=== PATIENT | female | born 1940 | race Caucasian/White ===

== ENCOUNTER 2017-10-27 13:56 | Inpatient (IN) | payer OTHER ==
[~2017-10-27] VITALS: Ht 170.2 cm; Wt 88.5 kg
[2017-10-27] MEDS ORDERED: SODIUM CHLORIDE 0.9% 1,000 ML IVB ONE (14:10)
[2017-10-27 15:04] LABS: BUN/Creatinine Ratio 7.3; Bilirubin, Total 1.2 mg/dL (0.2-1.0); Calcium 9.4 mg/dL (8.5-10.1); Magnesium 1.4 mg/dL (1.6-2.6); Potassium 3.5 mmol/L (3.5-5.1)
[2017-10-27 15:06] LABS: INR 1.05 (0.9-1.15); Partial Thromboplastin Time 23.7 sec (23.78-33.04); Prothrombin Time 11.2 sec (9.27-12.13)
[2017-10-27 15:23] LABS: Basophils # (auto) 0 uL; Basophils % (auto) 0.5 % (0.0-2.0); Hemoglobin 16.8 g/dL (12.2-16.2); Lymphocytes # (auto) 0.6 uL; Platelet Count (auto) 238 10^3/uL (140-450)
[2017-10-27 15:29] LABS: Eosinophils # (auto) 0 uL; Eosinophils % (auto) 0.1 % (0.0-7.0); Hematocrit 47.7 % (36.0-46.0); Mean Corpuscular Hemoglobin 31.1 pg (28.0-32.0); Mean Corpuscular Hgb Conc. 35.2 g/dL (32.0-36.0); Mean Corpuscular Volume 88.2 fL (80.0-100.0); Monocytes # (auto) 0.6 uL; Monocytes % (auto) 6.5 % (0.0-12.0); Neutrophils # (auto) 7.7 uL; Neutrophils % (auto) 85.9 % (37.0-80.0); Nucleated Red Blood Cells % 0.1 %; Red Blood Cells 5.41 10^6/uL (4.0-5.20); Red Cell Distribution Width 13.7 % (11.8-14.3)
[2017-10-27 17:00] LABS: Urine Bacteria NONE SEEN /hpf (None Seen); Urine Blood Negative /uL (Negative); Urine Mucus FEW (None Seen); Urine WBC 4 /hpf (0 - 5)
[2017-10-27] MEDS ORDERED: ASPirin-EC 81 mg tab PO ONE (17:00)
[2017-10-27 17:07] LABS: Alcohol, Urine < 3.0 mg/dL (0-5); Amphetamine Screen, Urine NEGATIVE (NEGATIVE); Barbiturate Scree,Urine NEGATIVE (NEGATIVE); Benzodiazephine Screen, Urine NEGATIVE (NEGATIVE); Cannabinoid Screen, Urine NEGATIVE (NEGATIVE); Cocaine Screen, Urine NEGATIVE (NEGATIVE); Opiate Scree,Urine NEGATIVE (NEGATIVE); Phencyclidine Screen, Urine NEGATIVE (NEGATIVE)
[2017-10-27] MEDS: MAGNESIUM SULFATE 1GM/100ML 100 ML IV SCH ×2 (19:21→22:00)
[2017-10-27] MEDS ORDERED: cloNIDine HCL 0.1 MG TAB ONE (19:49)
[2017-10-27] MEDS ORDERED: cloNIDine HCL 0.1 MG TAB PO ONE (21:45)
[2017-10-27] MEDS ORDERED: MAGNESIUM SULFATE 1GM/100ML 100 ML IV ONE (22:00)
[2017-10-27] MEDS ORDERED: ONDANSETRON HCL 4 MG/2 ML VIAL IV PRN (23:15)
[2017-10-27] MEDS ORDERED: LABETALOL HCL 5 MG/ML ML 20ML VIAL IV PRN (23:15)
[2017-10-27] MEDS ORDERED: LORazepam 2MG/ML-1ML VIAL IV PRN (23:15)
[2017-10-27] MEDS ORDERED: MORPHINE SULFATE 8mg/ml INJ SDV IV PRN (23:15)
[2017-10-27] MEDS ORDERED: NITROGLYCERIN 0.4 MG SL TAB SL PRN (23:15)
[2017-10-27] MEDS: SODIUM CHLORIDE 0.9% 1,000 ML IV SCH (23:41)
[2017-10-28 00:30] VITALS: BP 149/47
[2017-10-28 05:00] VITALS: BP 158/77
[2017-10-28] MEDS ORDERED: SPIR25TA88 (07:50)
[2017-10-28 07:59] LABS: Basophils # (auto) 0.1 uL; Basophils % (auto) 0.6 % (0.0-2.0); Eosinophils # (auto) 0 uL; Eosinophils % (auto) 0.2 % (0.0-7.0); Hematocrit 43.6 % (36.0-46.0); Hemoglobin 15.3 g/dL (12.2-16.2); Lymphocytes # (auto) 1.2 uL; Lymphocytes % (auto) 13.6 % (10.0-50.0); Mean Corpuscular Hgb Conc. 35.1 g/dL (32.0-36.0); Mean Corpuscular Volume 88.2 fL (80.0-100.0); Monocytes # (auto) 1.2 uL; Monocytes % (auto) 13.5 % (0.0-12.0); Neutrophils # (auto) 6.3 uL; Neutrophils % (auto) 72.1 % (37.0-80.0); Nucleated Red Blood Cells % 0.1 %; Platelet Count (auto) 187 10^3/uL (140-450); Red Blood Cells 4.94 10^6/uL (4.0-5.20); Red Cell Distribution Width 13.6 % (11.8-14.3); White Blood Cell 8.7 10^3/uL (4.4-10.8)
[2017-10-28 08:08] LABS: BUN/Creatinine Ratio 9.2; Calcium 8.6 mg/dL (8.5-10.1)
[2017-10-28 08:22] LABS: Cholesterol 175 mg/dL (< 200); HDL Cholesterol 59 mg/dL (40-59); LDL Cholesterol 107 mg/dL (< 100); Triglycerides 94 mg/dL (< 150)
[2017-10-28 08:30] LABS: Potassium 2.7 mmol/L (3.5-5.1)
[2017-10-28] MEDS ORDERED: POTASSIUM CHL 20 Meq TABLET PO ONE ×2 (08:45→09:15)
[2017-10-28 09:39] VITALS: BP 146/95
[2017-10-28] MEDS ORDERED: SPIR25TA88 PO (09:45)
[2017-10-28] MEDS ORDERED: CHOL20007 PO (09:54)
[2017-10-28] MEDS ORDERED: HYDR-4798 PO (09:54)
[2017-10-28] MEDS ORDERED: PRA1C PO (09:54)
[2017-10-28] MEDS ORDERED: LAMO25TA2 PO (09:54)
[2017-10-28] MEDS ORDERED: METO25TA5 PO (09:54)
[2017-10-28] MEDS ORDERED: ALPR0.5T GT (09:54)
[2017-10-28] MEDS ORDERED: ENOXAPARIN SOD 30 MG/0.3 ML SYRINGE SC SCH (10:00)
[2017-10-28] MEDS ORDERED: ENOXAPARIN SOD 40 MG/0.4 ML SYRINGE SC SCH (10:00)
[2017-10-28] MEDS: ENOXAPARIN SOD 40 MG/0.4 ML SYRINGE SC SCH (10:53)
[2017-10-28] MEDS ORDERED: SPIRONOLACTONE 25 MG TAB PO ONE (12:00)
[2017-10-28] MEDS ORDERED: ASPirin 81 mg TAB PO ONE (12:00)
[2017-10-28] MEDS ORDERED: lamoTRIgine 25 MG TAB PO ONE (12:00)
[2017-10-28] MEDS ORDERED: cefTRIAXone 1GM/10ml IVPUSH 10 ML IV ONE (12:15)
[2017-10-28] MEDS: SODIUM CHLORIDE 0.9% 1,000 ML IV SCH (12:35)
[2017-10-28 13:00] VITALS: BP 145/81
[2017-10-28 17:30] VITALS: BP 144/62
[2017-10-28 22:00] VITALS: BP 120/93
[2017-10-28] MEDS: METOPROLOL TARTRATE 25 MG TAB PO SCH ×2 (22:00→23:23)
[2017-10-28] MEDS: ATORVASTATIN 20 MG TAB PO SCH ×2 (22:30→23:23)
[2017-10-29] MEDS: SODIUM CHLORIDE 0.9% 1,000 ML IV SCH ×2 (01:55→15:15)
[2017-10-29 05:00] VITALS: BP 136/66
[2017-10-29 06:06] LABS: Basophils # (auto) 0.1 uL; Basophils % (auto) 0.9 % (0.0-2.0); Eosinophils # (auto) 0.1 uL; Eosinophils % (auto) 1.6 % (0.0-7.0); Hematocrit 40.9 % (36.0-46.0); Hemoglobin 13.8 g/dL (12.2-16.2); Lymphocytes # (auto) 1.6 uL; Lymphocytes % (auto) 24.1 % (10.0-50.0); Mean Corpuscular Hemoglobin 30.8 pg (28.0-32.0); Mean Corpuscular Hgb Conc. 33.8 g/dL (32.0-36.0); Mean Corpuscular Volume 91.3 fL (80.0-100.0); Monocytes # (auto) 0.8 uL; Monocytes % (auto) 11.5 % (0.0-12.0); Neutrophils # (auto) 4.1 uL; Neutrophils % (auto) 61.9 % (37.0-80.0); Nucleated Red Blood Cells % 0.1 %; Platelet Count (auto) 191 10^3/uL (140-450); Red Blood Cells 4.48 10^6/uL (4.0-5.20); Red Cell Distribution Width 14.1 % (11.8-14.3); White Blood Cell 6.6 10^3/uL (4.4-10.8)
[2017-10-29 06:13] LABS: Calcium 8.5 mg/dL (8.5-10.1); Chloride 105 mmol/L (98-107); Potassium 3.9 mmol/L (3.5-5.1); Sodium 138 mmol/L (136-145)
[2017-10-29 06:17] LABS: Alanine Aminotransferase 10 U/L (13-56); Albumin 2.8 g/dL (3.4-5.0); Anion Gap 11 (5-15); Aspartate Aminotransferase 13 U/L (15-37); BUN/Creatinine Ratio 13.1; Blood Urea Nitrogen 13 mg/dL (7-18); Carbon Dioxide 22 mmol/L (21-32); GFR African American 70 mL/min; GFR Non-African American 58 mL/min; Glucose 85 mg/dL (74-106)
[2017-10-29 06:20] LABS: Alkaline Phosphatase 65 U/L (45-117); Bilirubin, Total 1.3 mg/dL (0.2-1.0); Total Protein 6.3 g/dL (6.4-8.2)
[2017-10-29] MEDS ORDERED: cefTRIAXone 1GM/10ml IVPUSH 10 ML IV SCH (09:00)
[2017-10-29] MEDS: ENOXAPARIN SOD 40 MG/0.4 ML SYRINGE SC SCH (09:56)
[2017-10-29] MEDS ORDERED: lamoTRIgine 25 MG TAB PO SCH (10:00)
[2017-10-29] MEDS ORDERED: ASPirin 81 mg TAB PO SCH (10:00)
[2017-10-29] MEDS: METOPROLOL TARTRATE 25 MG TAB PO SCH (10:00)
[2017-10-29] MEDS ORDERED: SPIRONOLACTONE 25 MG TAB PO SCH (10:00)
[2017-10-29 14:15] LABS: Folate (Folic Acid) 7.01 ng/mL (5.38-24)
== END 2017-10-29 21:35 | disposition short-term general hospital (02) | DRG 64 ==
LOC: EDBD 13:56 → ER 14:04 → TELE 14:05 → TELE-WESTW 10-28 00:25
PROVIDERS: ADMIT Nurse Practitioner Family; ATTEND Family Medicine
DX: I63.9 Cerebral infarction, unspecified (principal); I21.4 Non-ST elevation (NSTEMI) myocardial infarction; G93.41 Metabolic encephalopathy; N39.0 Urinary tract infection, site not specified; G81.94 Hemiplegia, unspecified affecting left nondominant side; R74.8 Abnormal levels of other serum enzymes; E83.42 Hypomagnesemia; I10 Essential (primary) hypertension; I25.10 Atherosclerotic heart disease of native coronary artery without angina pectoris; M12.9 Arthropathy, unspecified; R47.02 Dysphasia; R47.1 Dysarthria and anarthria; F41.9 Anxiety disorder, unspecified; M10.9 Gout, unspecified; Z96.653 Presence of artificial knee joint, bilateral; E78.5 Hyperlipidemia, unspecified; E66.01 Morbid (severe) obesity due to excess calories; E78.00 Pure hypercholesterolemia, unspecified; E87.6 Hypokalemia; Z87.891 Personal history of nicotine dependence; Z79.82 Long term (current) use of aspirin; Z80.1 Family history of malignant neoplasm of trachea, bronchus and lung; Z98.61 Coronary angioplasty status; Z88.2 Allergy status to sulfonamides; Z79.899 Other long term (current) drug therapy; Z88.8 Allergy status to other drugs, medicaments and biological substances; Z68.30 Body mass index [BMI] 30.0-30.9, adult
CPT/HCPCS: 36415; 51702; 70450; 70551; 71045; 80048; 80053; 80061; 80307; 80320; 81001; 82607; 82746; 82962; 83605; 83735; 84443; 84484; 85025; 85610; 85730; 87040; 87086; 87088; 87186; 92610; 93005; 93306; 95819; 96361; 96365; 96375; 99291

== ENCOUNTER → 2018-07-17 | Outpatient (CLI) | payer OTHER ==
[~2018-07-17] MED LIST: ALPR0.5T GT; CHOL20007 PO; HYDR-4798 PO; LAMO25TA2 PO; METO25TA5 PO; PRA1C PO; SPIR25TA88 PO
[2018-07-17 16:02] LABS: Amphetamine Screen, Urine NEGATIVE (NEGATIVE); Barbiturate Scree,Urine NEGATIVE (NEGATIVE); Benzodiazephine Screen, Urine POSITIVE (NEGATIVE); Cannabinoid Screen, Urine NEGATIVE (NEGATIVE); Cocaine Screen, Urine NEGATIVE (NEGATIVE); Opiate Scree,Urine POSITIVE (NEGATIVE); Phencyclidine Screen, Urine NEGATIVE (NEGATIVE)
== END | disposition home or self-care (01) ==
LOC: LAB 14:58
PROVIDERS: ATTEND Psychiatry & Neurology Neurology
DX: R52 Pain, unspecified (principal)
CPT/HCPCS: 80307

== ENCOUNTER 2018-11-04 17:49 | Emergency (ER) | payer OTHER ==
[~2018-11-04] VITALS: Ht 170.2 cm; Wt 81.6 kg
[2018-11-04] MEDS ORDERED: MORPHINE SULFATE 4 MG/ML SYR/VIAL IV ONE ×3 (19:45→23:45)
[2018-11-04] MEDS ORDERED: ONDANSETRON HCL 4 MG/2 ML VIAL IV ONE ×3 (19:45→23:45)
[2018-11-05 01:27] VITALS: BP 116/65
[2018-11-05] MEDS ORDERED: FUROSEMIDE 20 MG/2 ML VIAL IV ONE (04:15)
== END 2018-11-05 03:16 | disposition home or self-care (01) ==
LOC: EDBD 17:49 → EDUNIT# 17:49 → ER 17:52
DX: S42.212A Unspecified displaced fracture of surgical neck of left humerus, initial encounter for closed fracture (principal); S05.12XA Contusion of eyeball and orbital tissues, left eye, initial encounter; R51 Headache; F41.9 Anxiety disorder, unspecified; I10 Essential (primary) hypertension; Z86.73 Personal history of transient ischemic attack (TIA), and cerebral infarction without residual deficits; Z98.61 Coronary angioplasty status; Z79.891 Long term (current) use of opiate analgesic; Z79.899 Other long term (current) drug therapy; Z88.2 Allergy status to sulfonamides; W01.0XXA Fall on same level from slipping, tripping and stumbling without subsequent striking against object, initial encounter; Y93.89 Activity, other specified; Y92.89 Other specified places as the place of occurrence of the external cause; Y99.8 Other external cause status
CPT/HCPCS: 29105; 70450; 70486; 73030; 73200; 96374; 96375; 96376; 99284; J2270; J2405; 29505

== ENCOUNTER 2018-11-11 17:58 | Inpatient (IN) | payer OTHER ==
[~2018-11-11] VITALS: Ht 175.3 cm; Wt 94.7 kg
[2018-11-11 18:36] LABS: Basophils # (auto) 0 uL; Basophils % (auto) 0.6 % (0.0-2.0); Eosinophils # (auto) 0 uL; Eosinophils % (auto) 0.6 % (0.0-7.0); Hematocrit 39.3 % (36.0-46.0); Hemoglobin 13.3 g/dL (12.2-16.2); Lymphocytes # (auto) 0.7 uL; Lymphocytes % (auto) 9.9 % (10.0-50.0); Mean Corpuscular Hemoglobin 30.9 pg (28.0-32.0); Mean Corpuscular Hgb Conc. 33.8 g/dL (32.0-36.0); Mean Corpuscular Volume 91.5 fL (80.0-100.0); Monocytes # (auto) 0.8 uL; Monocytes % (auto) 12.4 % (0.0-12.0); Neutrophils # (auto) 5.1 uL; Neutrophils % (auto) 76.5 % (37.0-80.0); Nucleated Red Blood Cells % 0.1 %; Platelet Count (auto) 249 10^3/uL (140-450); Red Blood Cells 4.29 10^6/uL (4.0-5.20); Red Cell Distribution Width 13.9 % (11.8-14.3); White Blood Cell 6.7 10^3/uL (4.4-10.8)
[2018-11-11 18:56] LABS: Albumin 2.9 g/dL (3.4-5.0); BUN/Creatinine Ratio 13.7; Calcium 8.9 mg/dL (8.5-10.1)
[2018-11-11 19:00] LABS: Bilirubin, Total 1.6 mg/dL (0.2-1.0); Total Protein 6.9 g/dL (6.4-8.2)
[2018-11-11 19:38] LABS: Potassium 2.8 mmol/L (3.5-5.1)
[2018-11-11] MEDS ORDERED: POTASSIUM CHL 20MEQ/100ML 100 ML IV ONE (20:00)
[2018-11-11 22:03] LABS: Urine Bacteria NONE SEEN /hpf (None Seen); Urine Blood Negative /uL (Negative); Urine Mucus FEW (None Seen); Urine Specific Gravity 1.023 (1.001-1.035); Urine WBC 1 /hpf (0 - 5)
[2018-11-11] MEDS ORDERED: TEMAZEPAM 15 MG CAP PO PRN (23:30)
[2018-11-11] MEDS ORDERED: ACETAMINOPHEN 500 MG TAB PO PRN (23:30)
[2018-11-11] MEDS ORDERED: ONDANSETRON HCL 4 MG/2 ML VIAL IV PRN (23:30)
[2018-11-11] MEDS ORDERED: DOCUSATE SOD 100 MG CAP PO PRN (23:30)
[2018-11-11] MEDS ORDERED: LORazepam 2MG/ML-1ML VIAL IV ONE (23:45)
[2018-11-11] MEDS ORDERED: POTASSIUM CHL 20 Meq TABLET PO ONE (23:45)
[2018-11-11] MEDS: MORPHINE SULF INJ 2 MG/ML SYRINGE 1ML IV PRN (23:53)
--- NOTE | 2018-11-12 00:55 | NUR ---
Telemetry admit from ER WESLEY RIDDLE admitted to Telemetry unit. Patient oriented to SHWETHA SNOW, primary RN, unit, room, bed, and unit policies regarding patient care and visiting hours. Patient now on continuous telemetry monitoring, tele box #2 and telemetry reading on arrival to unit is ST. Patient placed on bedside oxygen, weighed by bedscale and encouraged to call if they need something. Bed locked in lowest position, side rails upx2, call light within reach. All questions and concerns addressed, patient verbalized understanding.
[2018-11-12 01:00] VITALS: BP 139/77
[2018-11-12] MEDS ORDERED: LOSA25TA40 PO (02:13)
[2018-11-12] MEDS ORDERED: CHOL200031 PO (02:13)
[2018-11-12] MEDS ORDERED: ROSU5TAB5 PO (02:13)
[2018-11-12] MEDS ORDERED: HCTZ25T PO (02:13)
[2018-11-12] MEDS ORDERED: SERT-274 PO (02:13)
[2018-11-12] MEDS ORDERED: MET50T PO (02:13)
[2018-11-12] MEDS ORDERED: CYCL5TAB PO (02:13)
[2018-11-12 04:54] VITALS: BP 174/81
--- NOTE | 2018-11-12 05:12 | NUR ---
Received orders from loan Matias for Labetalol 100 mg PO once for patient's high blood pressure of 174/81. Will carry out.
[2018-11-12] MEDS ORDERED: LABETALOL HCL 200 MG TAB PO ONE (05:15)
[2018-11-12 06:45] LABS: BUN/Creatinine Ratio 13.3; Calcium 8.5 mg/dL (8.5-10.1)
[2018-11-12 07:28] LABS: Basophils # (auto) 0.1 uL; Basophils % (auto) 1.3 % (0.0-2.0); Eosinophils # (auto) 0.1 uL; Eosinophils % (auto) 1.3 % (0.0-7.0); Hematocrit 40.1 % (36.0-46.0); Hemoglobin 13.5 g/dL (12.2-16.2); Lymphocytes # (auto) 1.1 uL; Lymphocytes % (auto) 17.2 % (10.0-50.0); Mean Corpuscular Hemoglobin 30.7 pg (28.0-32.0); Mean Corpuscular Hgb Conc. 33.5 g/dL (32.0-36.0); Mean Corpuscular Volume 91.5 fL (80.0-100.0); Monocytes # (auto) 0.8 uL; Monocytes % (auto) 12.8 % (0.0-12.0); Neutrophils # (auto) 4.3 uL; Neutrophils % (auto) 67.4 % (37.0-80.0); Platelet Count (auto) 249 10^3/uL (140-450); Red Blood Cells 4.39 10^6/uL (4.0-5.20); White Blood Cell 6.4 10^3/uL (4.4-10.8)
[2018-11-12 08:39] LABS: Potassium 2.8 mmol/L (3.5-5.1)
[2018-11-12] MEDS ORDERED: OPTISON 3ml Vial for INJ IV ONE ×2 (08:46→09:15)
[2018-11-12 09:00] VITALS: BP 153/71
--- NOTE | 2018-11-12 09:41 | NUR ---
Stress Test Update Dobutamine stress test/echo held at this time due to hypokalemia. Dr. Constantino castillo.
[2018-11-12] MEDS: DOBUTamine 1000MCG/ML 100 ML IV STA (09:43)
[2018-11-12] MEDS ORDERED: POTASSIUM CHL 20 Meq TABLET PO ONE (12:00)
[2018-11-12] MEDS: PANTOPRAZOLE 40 MG TAB PO SCH (12:02)
[2018-11-12] MEDS: METOPROLOL TARTRATE 25 MG TAB PO SCH ×2 (12:07→21:58)
[2018-11-12] MEDS: lamoTRIgine 25 MG TAB PO SCH (12:07)
[2018-11-12] MEDS: MORPHINE SULF INJ 2 MG/ML SYRINGE 1ML IV PRN ×2 (12:09→21:35)
[2018-11-12] MEDS ORDERED: POTASSIUM CHLORIDE 20 MEQ, LIDOCAINE 1% (LOCAL ANESTH.) 2 ML in SODIUM CHL 0.9% 100 ML IV ONE (12:15)
[2018-11-12 14:00] VITALS: BP 135/60
[2018-11-12 16:33] VITALS: BP 140/56
[2018-11-12 16:54] LABS: INR 1.05 (0.9-1.15); Partial Thromboplastin Time 26.8 sec (23.64-32.05)
[2018-11-12] MEDS: MAGNESIUM SULFATE 1GM/100ML 100 ML IV SCH (18:02)
--- NOTE | 2018-11-12 21:30 | NUR ---
IV insertion IV access obtained, via clean sterile technique by inserting 22 gauge catheter at right AC after 2 attemptS. IV secured properly. No trauma to site. Patient tolerated well. Previous IV dc'd by day shift RN, IV was pulled.
[2018-11-12 21:44] VITALS: BP 146/80
[2018-11-13] MEDS: MAGNESIUM SULFATE 1GM/100ML 100 ML IV SCH (01:30)
[2018-11-13 06:15] VITALS: BP 125/71
[2018-11-13 07:05] LABS: Calcium 8.2 mg/dL (8.5-10.1); Potassium 3.4 mmol/L (3.5-5.1)
--- NOTE | 2018-11-13 07:45 | NUR ---
OPENING SHIFT NOTE PATIENT IN BED COMFORTABLY WITH EYES CLOSED. CHEST RISE AND FALL VISUALIZED, SHOWIN NO S/S OF SOB, OR ANY DISTRESS. CALL LIGHT WITH IN REACH BED IN LOWEST LOCKED POSITION. WILL CONTINUE TO MONITOR
[2018-11-13 08:00] VITALS: BP_SYST 158; BP_SYST 159; BP_DIAS 71; BP_DIAS 79
--- NOTE | 2018-11-13 10:30 | NUR ---
MD AT BEDSIDE PATIENT REFUSED STRESS TEST TILL MD SPEAKS TO HER. DR LEVINE IS AT BEDSIDE AND SPOKE TO PATIENT. PATIENT VERBALIZED UNDERSTANDING. WILL CARRY OUT ORDERS DIRECTED
[2018-11-13 12:00] VITALS: BP 138/70
--- NOTE | 2018-11-13 13:05 | NUR ---
[facility] MADE AWARE PERIPHERAL IV COULD NOT BE ACCESSED, MIDLINE ORDER OBTAINED.
[2018-11-13] MEDS ORDERED: OPTISON 3ml Vial for INJ IV ONE ×5 (13:13→14:33)
[2018-11-13] MEDS ORDERED: ATROPINE SULFATE 1 MG/1 ML VIAL ONE (13:13)
[2018-11-13 13:29] VITALS: BP 153/83
--- NOTE | 2018-11-13 14:00 | NUR ---
PATIENT OFF UNIT PATIENT TAKEN FOR STRESS TEST
[2018-11-13] MEDS: DOBUTamine 1000MCG/ML 100 ML IV STA (14:45)
[2018-11-13] MEDS: MORPHINE SULF INJ 2 MG/ML SYRINGE 1ML IV PRN (14:56)
[2018-11-13] MEDS ORDERED: ATROPINE SULF 1 MG/10ml SYR IV ONE (15:00)
--- NOTE | 2018-11-13 15:30 | NUR ---
PATIENT ARRIVED BACK ON UNIT
[2018-11-13 17:00] VITALS: BP 118/72
[2018-11-13] MEDS: POTASSIUM CHL 20 Meq TABLET PO SCH (17:33)
--- NOTE | 2018-11-13 17:33 | NUR ---
assessment Patient is a 78 year old female who is sleeping. Per patients Bob who is at bedside prior to admission patient lived home with him and functioned with assistance since she fractured her shoulder. Per Bob patient has trouble getting up since she cannot use her arm to push herself up. Patients PCP is Dr José Manuel Dias. Patient has a fww and a bedside commode for home use. I informed Bob patient has a ss consult that she may need help at home. Per Bob patient may need SNF placement until she heals from her injury. I informed Bob patients discharge needs to be determined. I offered Bob private pay caregiver resources and referred patient to [facility] for a free caregiver through the [place]. Bob verbalized understanding. Addendum: 11/13/18 at 1741 by Shannon JERONIMO Amended: Links added.
[2018-11-13] MEDS: lamoTRIgine 25 MG TAB PO SCH (17:34)
[2018-11-13] MEDS: METOPROLOL TARTRATE 25 MG TAB PO SCH ×2 (17:34→23:24)
[2018-11-13] MEDS: PANTOPRAZOLE 40 MG TAB PO SCH (17:34)
--- NOTE | 2018-11-13 18:45 | NUR ---
END OF SHIFT NOTE PATIENT IS CURRENTLY IN BED WITH EYES CLOSED, CHEST RISE AND FALL VISUALIZED, SHOWING NO S.S OF SOB OR ANY DISTRESS AT THIS TIME. BED IS IN LOWEST LOCKED POSITION CALL LIGHT WITHIN REACH WILL ENDORSE CARE TO NOC RN
[2018-11-13 22:00] VITALS: BP 106/66
[2018-11-14 05:08] VITALS: BP 106/60
--- NOTE | 2018-11-14 07:40 | NUR ---
OPENING SHIFT NOTE PATIENT LAYING IN BED WITH EYES CLOSED COMFORTABLY. CHEST RISE AND FALL VISUALIZED. NO S/S OF DISTRESS OR SOB NOTED. BOARD UPDATED. CALL LIGHT WITHIN REACH. BED IN LOWEST LOCKED POSITION. WILL CONTINUE TO MONITOR
[2018-11-14 08:00] VITALS: BP 108/56
[2018-11-14] MEDS: lamoTRIgine 25 MG TAB PO SCH (10:00)
[2018-11-14] MEDS: POTASSIUM CHL 20 Meq TABLET PO SCH (10:06)
[2018-11-14] MEDS: METOPROLOL TARTRATE 25 MG TAB PO SCH ×2 (10:07→21:54)
[2018-11-14] MEDS: PANTOPRAZOLE 40 MG TAB PO SCH (10:07)
[2018-11-14] MEDS: MORPHINE SULF INJ 2 MG/ML SYRINGE 1ML IV PRN (10:08)
[2018-11-14 12:00] VITALS: BP 107/54
[2018-11-14 16:00] VITALS: BP 104/54
[2018-11-14] MEDS: IBUPROFEN 600 MG TAB PO SCH ×2 (17:12→21:54)
--- NOTE | 2018-11-14 18:43 | NUR ---
END OF SHIFT NOTE PATIENT LAYING IN BED WATCHING TV. PATIENT REQUESTED TO GO TO THE BED CLOSER TO WINDOW. CHARGE NURSE NOTIFIED AND VERBALIZED SHE CAN CHANGE BEDS. BED CHANGE FINISHED. WILL CALL FOR CLEAN UP. PATIENT IS AWAKE AND ALERT X4 SHOWING NO S/S OF DISTRESS AND DENIES PAIN AND SOB AT THIS TIME. BED IS IN LOWEST LOCKED POSITION. CALL LIGHT IS WITHIN REACH. WILL ENDORSE CARE TO NOC RN
--- NOTE | 2018-11-14 20:40 | NUR ---
IV insertion IV access obtained, via clean sterile technique by inserting 22 gauge catheter at RIGHT WRIST after 2 attempts. IV secured properly. No trauma to site. Patient tolerated well. NOTE: IV removal IV DC'd with clean sterile technique, catheter fully intact. Pressure dressing applied to site. Patient tolerated well.
[2018-11-14 22:00] VITALS: BP 106/55
[2018-11-15 05:38] VITALS: BP 94/48
[2018-11-15] MEDS: IBUPROFEN 600 MG TAB PO SCH ×3 (06:00→22:00)
--- NOTE | 2018-11-15 06:35 | NUR ---
PATIENT RESTING ON BED WITH EYES CLOSED, NO RESPIRATORY DISTRESS NOTED AT THIS TIME. RR= 17. KEPT BED ALARM ON. CONTINUE PATIENT CARE.
--- NOTE | 2018-11-15 07:30 | NUR ---
Opening Shift Note Assumed care of patient, awake and alert. No S/S of distress/SOB. Pain reported to the left shoulder. The pain shoots up when the arm is moved. Pain management options have been discussed with the patient. Instructed on POC and to call for assist PRN, will continue to monitor for changes Q1hr and PRN.
[2018-11-15 08:00] VITALS: BP 106/52
[2018-11-15 08:37] VITALS: BP 106/52
[2018-11-15] MEDS: METOPROLOL TARTRATE 25 MG TAB PO SCH ×2 (10:00→22:15)
[2018-11-15] MEDS: POTASSIUM CHL 20 Meq TABLET PO SCH (10:00)
[2018-11-15] MEDS: PANTOPRAZOLE 40 MG TAB PO SCH (10:00)
[2018-11-15] MEDS ORDERED: ALLOPURINOL 300 MG TAB PO SCH (10:00)
[2018-11-15] MEDS: lamoTRIgine 25 MG TAB PO SCH (10:00)
--- NOTE | 2018-11-15 11:29 | NUR ---
Nutrition Assessment Notes please see attached link for complete assessment Est. Needs BW [id number] kcal (23-25 kcal/kgBW), 82-90 gms pro (1.0-1.1 gms/kgBW). Will continue to monitor pertinent labs and reassess nutrient need prn Addendum: 11/15/18 at [address] Amended: Links added.
[2018-11-15 12:25] VITALS: BP 115/66
[2018-11-15] MEDS: MORPHINE SULF INJ 2 MG/ML SYRINGE 1ML IV PRN ×2 (14:37→18:51)
--- NOTE | 2018-11-15 14:45 | NUR ---
re-assessment Per consult patient feels she cannot function at home with LUE fracture and acute gout in right foot. I have referred patient and to [facility] for a free caregiver through the [place] program. Leslye has contacted Bob patients . I have also offered Bob private pay caregiver information and he refused. Addendum: 11/15/18 at 1447 by Shannon Stark Amended: Links added.
[2018-11-15 16:00] VITALS: BP 100/57
--- NOTE | 2018-11-15 20:30 | NUR ---
OPEN NOTE assumed care of pt. upon entering room pt awake, alert and oriented x3; not knowing what the present date was, pt was aware of the month. pt on room air, no distress noted or expressed. pt reported pain in left shoulder "tolerable" at 3/0-10 pain scale. pt reports "its fine as long as no one tries to move me". pt states she can redistribute her weight, but does not want to be repositioned manually by staff. pt updated on plan of care. pt has no additional questions at this time. call light in reach. bed locked, low and 2xrails up. will round q1hr and prn.
[2018-11-15 22:04] VITALS: BP 117/82
[2018-11-15] MEDS: HYDROcodone-ACET 5/325MG TAB PO PRN (22:16)
[2018-11-16 05:00] VITALS: BP 106/57
[2018-11-16] MEDS: IBUPROFEN 600 MG TAB PO SCH ×3 (06:05→22:00)
--- NOTE | 2018-11-16 07:30 | NUR ---
RECEIVED REPORT FROM NIGHT NURSE. PATIENT RESTING IN BED, NO DISTRESS NOTED. BED ALARM ON, WILL CONTINUE TO MONITOR.
[2018-11-16 09:00] VITALS: BP 110/62
[2018-11-16] MEDS: lamoTRIgine 25 MG TAB PO SCH (10:00)
[2018-11-16] MEDS: POTASSIUM CHL 20 Meq TABLET PO SCH (10:00)
[2018-11-16] MEDS: PANTOPRAZOLE 40 MG TAB PO SCH (10:10)
[2018-11-16] MEDS: METOPROLOL TARTRATE 25 MG TAB PO SCH ×2 (10:10→22:00)
[2018-11-16] MEDS: ALLOPURINOL 100 MG TAB PO SCH (10:11)
--- NOTE | 2018-11-16 11:18 | NUR ---
DOCTOR AYERS AT BEDSIDE.
[2018-11-16 13:00] VITALS: BP 120/52
--- NOTE | 2018-11-16 14:24 | NUR ---
PATIENT WORRIED SHE MIGHT HAVE A UTI. SPOKE WITH DOCTOR AYERS, ORDERS RECEIVED, WILL PLACE AND CARRY OUT.
--- NOTE | 2018-11-16 14:32 | NUR ---
URINE SPECIMEN COLLECTED AND SENT TO LAB VIA BULLET.
[2018-11-16 15:05] LABS: Urine Bacteria FEW /hpf (None Seen); Urine Blood TRACE /uL (Negative); Urine Mucus FEW (None Seen); Urine Specific Gravity 1.012 (1.001-1.035); Urine WBC 514 /hpf (0 - 5); Urine WBC Clumps PRESENT /hpf (None Seen)
[2018-11-16 16:48] VITALS: BP 123/50
--- NOTE | 2018-11-16 18:19 | NUR ---
PATIENT REFUSED TO TURN THROUGH OUT SHIFT. STATED THAT SHE HURTS TOO MUCH AND WILL NOT TURN FROM SIDE TO SIDE, OR BE PULLED UP FOR MEALS. SHE STATED THAT SHE REDISTRIBUTES HER WEIGHT WHILE LAYING STILL. EDUCATION PROVIDED ON THE IMPORTANCE OF TURNING TO PREVENT PRESSURE WOUNDS, AND THE NEED TO SIT UP TO REDUCE THE RISK OF ASPIRATION. WILL CONTINUE TO ENCOURAGE TURNING/ SITTING UP DURING MEALS AND MED PASS.
--- NOTE | 2018-11-16 19:35 | NUR ---
Opening Shift Note Assumed care of patient, awake and alert. No S/S of distress/SOB. The patient c/o left shoulder pain and right foot pain due to gout. Instructed on POC and to call for assist PRN, will continue to monitor for changes Q1hr and PRN.
--- NOTE | 2018-11-16 20:40 | NUR ---
REASSESSMENT The patient c/o 12/28 severe left shoulder and right foot pain and requests to take her PRN [place].
[2018-11-16] MEDS: HYDROcodone-ACET 5/325MG TAB PO PRN (20:45)
[2018-11-16 22:00] VITALS: BP 96/53
[2018-11-16] MEDS: ALPRAZolam 0.5 MG TAB PO PRN (22:39)
[2018-11-17 04:41] VITALS: BP 101/51
[2018-11-17] MEDS: IBUPROFEN 600 MG TAB PO SCH ×3 (06:35→22:34)
[2018-11-17 06:47] LABS: Basophils # (auto) 0.1 uL; Basophils % (auto) 0.7 % (0.0-2.0); Eosinophils # (auto) 0.3 uL; Eosinophils % (auto) 3.6 % (0.0-7.0); Hematocrit 33.4 % (36.0-46.0); Hemoglobin 11.4 g/dL (12.2-16.2); Lymphocytes # (auto) 1.2 uL; Lymphocytes % (auto) 13.8 % (10.0-50.0); Monocytes # (auto) 1.5 uL; Monocytes % (auto) 17.5 % (0.0-12.0); Neutrophils # (auto) 5.5 uL; Neutrophils % (auto) 64.4 % (37.0-80.0); Platelet Count (auto) 289 10^3/uL (140-450); Red Blood Cells 3.67 10^6/uL (4.0-5.20); Red Cell Distribution Width 13.6 % (11.8-14.3); White Blood Cell 8.5 10^3/uL (4.4-10.8)
[2018-11-17 07:02] LABS: Albumin 2.2 g/dL (3.4-5.0); Calcium 8.3 mg/dL (8.5-10.1); Potassium 3.9 mmol/L (3.5-5.1)
[2018-11-17 07:06] LABS: BUN/Creatinine Ratio 20.2; Bilirubin, Total 0.6 mg/dL (0.2-1.0); Total Protein 5.9 g/dL (6.4-8.2)
--- NOTE | 2018-11-17 07:15 | NUR ---
CLOSING NOTE Care has been endorsed to Stefanie KWON.
[2018-11-17 09:23] VITALS: BP 104/43
[2018-11-17] MEDS: POTASSIUM CHL 20 Meq TABLET PO SCH (10:00)
[2018-11-17] MEDS: lamoTRIgine 25 MG TAB PO SCH (10:00)
[2018-11-17] MEDS: PANTOPRAZOLE 40 MG TAB PO SCH (10:07)
[2018-11-17] MEDS: ALLOPURINOL 100 MG TAB PO SCH (10:07)
[2018-11-17] MEDS: METOPROLOL TARTRATE 25 MG TAB PO SCH ×2 (10:09→22:00)
[2018-11-17] MEDS: HYDROcodone-ACET 5/325MG TAB PO PRN (10:20)
--- NOTE | 2018-11-17 12:40 | NUR ---
Repositioned patient patient allowed us for the first time during this shift to reposition her, patient pulled up in bed and raised about 30 degrees by primary rn and TIRE CURERRaven Nam. Call light within reach. This rn reinforced education regarding risk for skin breakdown due to not turning or repositioning and she states "it's okay" that she is able to move in bed and has been doing her "leg exercises" and "shifting her weight" as instructed by P.T. Will cont to monitor and will continue to attempt turning and repositioning q2hr and prn
[2018-11-17 13:36] VITALS: BP 104/55
[2018-11-17 16:48] VITALS: BP 106/46
--- NOTE | 2018-11-17 17:49 | NUR ---
C/O itching patient c/o "itching and burning to back". Patient states "I'm having and allergic reaction to something and my temperature is 103". Assessed patient at bedside and temp check is 97.9 degrees. No rash, no redness, no ecchymosis, no s/s of infection or skin reaction noted. No s/s of distress or sob noted. Patient instructed regarding need for turning and assessing her back, she agreed to be turned at this time. Multiple bread crumbs noted under pt's back. Bedding changed and patient cleansed with body wash, soap, warm water and lotion applied. Patient states itching subsided. Gown changed as well. Patient turned and reposition to right side with pillow placed under her back. and pressure areas off loaded on pillows including bilat heel. Sacrum noted intact at this time. No signs of pressure ulcers or skin breakdown noted. Pt refusing to wear SCD's at this time and have been disconnected as requested per patient. Patient tolerated turning well, no s/s of pain noted. Bed alarm on at all times and patient encouraged to call for assistance as needed.
--- NOTE | 2018-11-17 18:55 | NUR ---
Patient care endorsed Endorsed care to Garfield walsh. Patient laying in bed in no acute distress or sob noted. Fall precs in place per protocol.
--- NOTE | 2018-11-17 19:20 | NUR ---
Opening Shift Note Assumed care of patient, awake and alert. No S/S of distress/SOB or pain. Instructed on POC and to call for assist PRN, will continue to monitor for changes Q1hr and PRN.
[2018-11-17 22:00] VITALS: BP 108/52
[2018-11-17] MEDS: ALPRAZolam 0.5 MG TAB PO PRN (22:34)
--- NOTE | 2018-11-18 02:45 | NUR ---
Patient began complaining abdominal discomfort with a burning sensation around the catheter. She states that these symptoms are similar to when she has a UTI. She reports that she has a history of recurrent UTIs.
[2018-11-18] MEDS: HYDROcodone-ACET 5/325MG TAB PO PRN ×2 (03:12→12:03)
--- NOTE | 2018-11-18 03:50 | NUR ---
HOSPITALIST HAS BEEN PAGED.
[2018-11-18 05:05] VITALS: BP 99/48
--- NOTE | 2018-11-18 05:05 | NUR ---
HOSPITALIST THOMAS. Notified hospitalist Florencio about the patient's UTI. Hospitalist gave telephone order of Rocephin 1 gm IV once and bacteria urine culture.
[2018-11-18] MEDS ORDERED: cefTRIAXone 1GM/50ML D5W 50 ML IV ONE (05:15)
[2018-11-18] MEDS: IBUPROFEN 600 MG TAB PO SCH ×3 (05:44→22:50)
--- NOTE | 2018-11-18 07:25 | NUR ---
CLOSING NOTE Care has been endorsed to day shift RN.
[2018-11-18 08:00] VITALS: BP 159/87
--- NOTE | 2018-11-18 08:29 | NUR ---
Tasneem JERONIMO consult for Home Health physical Therapy. Contacted [facility] Ph: ) Fax: ) Faxed Medical Records. Per Myron Pt has been accepted and service to start within 48 hours upon d/c. Informed [employer] Sue for authorization. Addendum: 11/20/18 at 0833 by FABIO NUNEZ Amended: Links added.
[2018-11-18 09:00] VITALS: BP 159/87
[2018-11-18] MEDS: POTASSIUM CHL 20 Meq TABLET PO SCH (10:00)
[2018-11-18] MEDS: lamoTRIgine 25 MG TAB PO SCH (10:00)
[2018-11-18] MEDS: METOPROLOL TARTRATE 25 MG TAB PO SCH ×2 (10:05→22:49)
[2018-11-18] MEDS: PANTOPRAZOLE 40 MG TAB PO SCH (10:05)
[2018-11-18] MEDS: ALLOPURINOL 100 MG TAB PO SCH (10:05)
[2018-11-18 13:00] VITALS: BP 120/59
[2018-11-18] MEDS ORDERED: PHENAZOPYRIDINE HCL 100 MG TAB PO ONE (13:30)
--- NOTE | 2018-11-18 15:10 | NUR ---
Mohr catheter dc'd Order to discontinue mohr catheter. Mohr dc'd with clean technique following deflation of balloon. Patient tolerated well with no complaints of pain. Continue care.
--- NOTE | 2018-11-18 15:15 | NUR ---
Dumas catheter insertion/replacement Order obtained from Dr. Murphy to exchange Dumas catheter. Patient educated on catheter and reason for insertion. All questions answered. Dumas catheter 16 guage Afghan inserted with clean sterile technique. Patient tolerated well.
--- NOTE | 2018-11-18 17:00 | NUR ---
Physical therapy Patient able to stand with physical therapy.
[2018-11-18] MEDS: PHENAZOPYRIDINE HCL 100 MG TAB PO SCH (17:08)
[2018-11-18 22:00] VITALS: BP 95/74
[2018-11-19] MEDS: HYDROcodone-ACET 5/325MG TAB PO PRN (01:26)
[2018-11-19 05:14] VITALS: BP 97/45
[2018-11-19] MEDS: IBUPROFEN 600 MG TAB PO SCH ×3 (06:00→21:33)
[2018-11-19 06:45] LABS: Anion Gap 10 (5-15); Blood Urea Nitrogen 27 mg/dL (7-18); Calcium 8.2 mg/dL (8.5-10.1); Carbon Dioxide 25 mmol/L (21-32); Chloride 105 mmol/L (98-107); GFR African American 63 mL/min; GFR Non-African American 52 mL/min; Glucose 79 mg/dL (74-106); Sodium 140 mmol/L (136-145)
[2018-11-19 08:00] VITALS: BP 97/44
--- NOTE | 2018-11-19 08:30 | NUR ---
REFUSING TO TURN PATIENT IS CURRENTLY REFUSING TO BE TURNED. EDUCATED PATIENT ON IMPORTANCE OF TURNING FREQUENTLY TO REDUCE SKIN BREAK DOWN. PATIENT VERBALIZED UNDERSTANDING AND STATED "I WAS ON MY SIDES ALL NIGHT. I WANT TO LAY ON MY BACK".
[2018-11-19 09:22] VITALS: BP_SYST 135; BP_SYST 97; BP_DIAS 44; BP_DIAS 74
[2018-11-19] MEDS: POTASSIUM CHL 20 Meq TABLET PO SCH ×2 (09:34→09:38)
[2018-11-19] MEDS: PHENAZOPYRIDINE HCL 100 MG TAB PO SCH ×3 (09:34→17:28)
[2018-11-19] MEDS: lamoTRIgine 25 MG TAB PO SCH ×2 (09:35→09:45)
[2018-11-19] MEDS: ALLOPURINOL 100 MG TAB PO SCH (09:35)
[2018-11-19] MEDS: PANTOPRAZOLE 40 MG TAB PO SCH (09:35)
[2018-11-19] MEDS: METOPROLOL TARTRATE 25 MG TAB PO SCH ×2 (09:36→21:34)
--- NOTE | 2018-11-19 10:23 | NUR ---
I called [employer] [phone] and left message asking for authorization for [facility], awaiting return call.
[2018-11-19 13:00] VITALS: BP 98/50
--- NOTE | 2018-11-19 14:00 | NUR ---
PHYSICAL THERAPY PHYSICAL THERAPY AT BEDSIDE. ASSISTED PATIENT TO SIDE OF BED, DANGLING FEET. CALL LIGHT WITHIN REACH. NAD.
--- NOTE | 2018-11-19 14:30 | NUR ---
SKIN TEAR Patient sitting at side of bed brushing hair with fork. reassessed patients skin on back and found scratch efrain on right and left lower back with skin tear on each side. Inquired to patient if she is aware how she sustained the skin tear and she states "oh, i have been scratching." Applied Thera honey and left open to air due to patient refusal of any bandage placed over skin tear. Wound photos taken. Signed: 11/19/18 at 1445 by CARLI DELGADO <Co-Signature Required> Co-Signed: 11/19/18 at 1445 by Ana Brooke RN
[2018-11-19 16:48] VITALS: BP 128/59
--- NOTE | 2018-11-19 17:27 | NUR ---
PATIENT ROUNDING Pt is awake and alert x4. call light within reach, bed rails up x2 and locked in place. No distress or pain noted at this time. Pt states " I would like to be moved up in bed when you get a chance after you medicate and see your other patients, no schafer." Signed: 11/19/18 at 1842 by CARLI DELGADO <Co-Signature Required> Co-Signed: 11/19/18 at 1842 by Ana Brooke RN
--- NOTE | 2018-11-19 18:45 | NUR ---
PATIENT REPOSITIONED/ FEEDING ABILITY ENTERED ROOM AND FOUND PATIENT EATING DINNER INDEPENDENTLY. PATIENT REQUESTING TO HAVE STAFF FEED HER. PATIENT DISPLAYS THE ABILITY TO FEED HERSELF INDEPENDENTLY WITH MINIMAL ASSISTANCE WITH REMOVING THE TOP FROM FRUIT CONTAINER. ENCOURAGED PATIENT TO CONTINUE TO FEED HERSELF INDEPENDENTLY. PATIENT STATES "WELL I HAVE BEEN FEEDING MYSELF FOR THE LAST THREE MEALS". REPOSITIONED PATIENT FOR COMFORT. CHANGED GISELLE UNDER PATIENT. PT TOLERATED WELL. ALL CONCERNS ADDRESSED AT THIS TIME.
--- NOTE | 2018-11-19 19:10 | NUR ---
CLOSING SHIFT NOTE ENDORSED CARE TO NOC RN. PATIENT SITTING UPRIGHT IN BED, FEEDING SELF FRUIT. RESP UNLAB. NAD.
--- NOTE | 2018-11-19 20:05 | NUR ---
open note assumed care of pt. upon entering room, pt awake, alert and oriented x4. pt bed locked, low and 2xrails up. pt on room air no distress noted or expressed. pt has mohr on place draining clear cynthia. pt updated on plan of care. pt had no additional questions at this time. pt call light in reach, will round q1hr and prn.
[2018-11-19] MEDS: ALPRAZolam 0.5 MG TAB PO PRN (21:59)
[2018-11-19 22:00] VITALS: BP 129/67
--- NOTE | 2018-11-20 02:30 | NUR ---
rounds pt eyes closed, breathing even and unlabored. no distress noted. call light in reach, will continue to monitor.
[2018-11-20 04:47] VITALS: BP 135/65
[2018-11-20] MEDS: IBUPROFEN 600 MG TAB PO SCH ×2 (06:44→15:45)
[2018-11-20] MEDS: HYDROcodone-ACET 5/325MG TAB PO PRN ×2 (08:08→19:33)
[2018-11-20] MEDS: PHENAZOPYRIDINE HCL 100 MG TAB PO SCH ×3 (08:08→19:33)
[2018-11-20 09:31] VITALS: BP 115/52
[2018-11-20] MEDS: lamoTRIgine 25 MG TAB PO SCH ×2 (10:00→10:19)
[2018-11-20] MEDS: POTASSIUM CHL 20 Meq TABLET PO SCH ×2 (10:00→10:19)
[2018-11-20] MEDS: PANTOPRAZOLE 40 MG TAB PO SCH (10:20)
[2018-11-20] MEDS: ALLOPURINOL 100 MG TAB PO SCH (10:20)
[2018-11-20] MEDS: METOPROLOL TARTRATE 25 MG TAB PO SCH ×2 (10:20→21:35)
--- NOTE | 2018-11-20 10:35 | NUR ---
REFUSED POTASSIUM AND LAMICTAL The patient refused to take her scheduled potassium because she states she cannot swallow the pill in any way. She also states that she is "highly sensitive" to the Lamictal and should "not be given it, whatsoever". Will notify the attending physician and continue to monitor.
--- NOTE | 2018-11-20 12:37 | NUR ---
Nutrition Follow-up Notes Wt.: 94.3 kg as of yesterday. Pt denies any discomfort except for shoulder and leg pain (/) r/t fall, per pt when rounded this morning. Pt states that she usually weighs around 185 lbs, probably lost weight d/t decreased food intake r/t not feeling well few days mud analysis well logging captain. Pt's usually has fair appetite, tries to eat meals regularly, NKFA and not into any special diets mud analysis well logging captain. Pt's currently on Cardiac: 2 gms Na, Low Chol, Low Fat, Low Purine diet with adequate PO intake aeb 80% ave. consumed meals (x6) in last 2.5 days. Reinforced nutrition educ. re: current prescribed therapeutic diet and she verbalized understanding. Noted pt's for active Orthopedic consult. Est. Needs BW [id number] kcal (23-25 kcal/kgBW), 82-90 gms pro (1.0-1.1 gms/kgBW). Will continue to monitor pertinent labs and reassess nutrient need prn Labs: No new labs today; 11/19/18 BUN 27 H, Cr 1.08 H, Ca 8.2 L; AST 12 L, ALT 7 L, Tpro 5.9 L, Alb 2.2 L Skin: Ruddy scale 17, mod risk, skin intact per textile stylist. GI: Pt's no bowel activity since 11/11/18 per textile stylist. Noted pt's on Colace. PES: Altered nutrition related lab values r/t acute/chronic medical condition aeb hypocalcemia, hyperuricemia, mod hypoalb Obesity r/t food intake more than body requirement aeb 143% IBW, BMI 30.7 kg/m2 and increased body adiposity Will continue to monitor PO intake, skin status, pertinent labs and weight trend. F/u in 3 to 5 days. Rec.: 1.) Continue close supervision and feeding assistance during meals. 2.) If Albumin level continues trending down, consider Prostat 1 pkt BID. 3.) Refer pt to RD for further nutrition education and weight monitoring upon discharge. 4.) Continue current plan of care.
[2018-11-20] MEDS ORDERED: predniSONE 20 MG TAB PO ONE (12:45)
[2018-11-20 13:10] VITALS: BP 145/81
[2018-11-20] MEDS ORDERED: MORPHINE SULF INJ 2 MG/ML SYRINGE 1ML IV PRN (15:45)
[2018-11-20 17:06] VITALS: BP 130/108
--- NOTE | 2018-11-20 19:30 | NUR ---
Opening shift note Patient in bed eating outside food brought in by spouse. Pt requested for nurse to come back after she is done eating.
--- NOTE | 2018-11-20 21:00 | NUR ---
PROVIDED BED BATH PER PATIENT'S REQUEST. COMPLETE LINEN CHANGE DONE.
[2018-11-20] MEDS: AMOXICILLIN/CLAVUL 875 MG TAB PO SCH (21:38)
[2018-11-20 21:53] VITALS: BP 134/77
[2018-11-21] MEDS: HYDROcodone-ACET 5/325MG TAB PO PRN ×2 (01:19→19:56)
[2018-11-21 05:03] VITALS: BP 137/72
[2018-11-21 07:10] LABS: BUN/Creatinine Ratio 22.3; Calcium 9.1 mg/dL (8.5-10.1); Potassium 4.1 mmol/L (3.5-5.1)
[2018-11-21 08:00] VITALS: BP 138/67
[2018-11-21] MEDS: PHENAZOPYRIDINE HCL 100 MG TAB PO SCH ×2 (08:12→12:33)
[2018-11-21] MEDS: lamoTRIgine 25 MG TAB PO SCH (08:12)
[2018-11-21] MEDS: POTASSIUM CHL 20 Meq TABLET PO SCH (08:14)
[2018-11-21 09:00] VITALS: BP 138/67
[2018-11-21] MEDS: predniSONE 20 MG TAB PO SCH (10:18)
[2018-11-21] MEDS: METOPROLOL TARTRATE 25 MG TAB PO SCH ×2 (10:19→21:42)
[2018-11-21] MEDS: AMOXICILLIN/CLAVUL 875 MG TAB PO SCH ×2 (10:19→21:41)
[2018-11-21] MEDS: PANTOPRAZOLE 40 MG TAB PO SCH (10:19)
[2018-11-21] MEDS: ALLOPURINOL 100 MG TAB PO SCH (10:19)
--- NOTE | 2018-11-21 11:31 | NUR ---
REPORT GIVEN TO ABBE AT [facility]. Addendum: 11/21/18 at 1922 by Cristina Jenkins RN RN WRONG PATIENT DISREGARD
[2018-11-21 13:00] VITALS: BP 126/74
[2018-11-21 17:00] VITALS: BP 147/80
--- NOTE | 2018-11-21 19:30 | NUR ---
Opening shift note Patient in bed eating dinner, alert and oriented x 4, verbally coherent able to make needs known. Pt's respiration even and unlabored, complained of pain and discomfort to left shoulder and right foot, will administer pain medication as ordered. Plan of care discussed, patient verbalized understanding. All needs attended, will continue to monitor.
[2018-11-21 22:00] VITALS: BP 155/82
[2018-11-22] MEDS: TEMAZEPAM 15 MG CAP PO PRN (01:50)
--- NOTE | 2018-11-22 03:15 | NUR ---
Received report from Paloma KWON and assumed care of pt at this time.
[2018-11-22 05:20] VITALS: BP 151/70
--- NOTE | 2018-11-22 07:45 | NUR ---
Opening Shift Note Assumed care of patient, awake and alert. No S/S of distress/SOB or pain. Instructed on POC and to call for assist PRN, will continue to monitor for changes Q1hr and PRN. Bed locked in lowest position with two side rails up and call light in reach. Patient currently eating breakfast.
[2018-11-22 08:00] VITALS: BP 145/61
[2018-11-22 09:00] VITALS: BP 145/61
[2018-11-22] MEDS: lamoTRIgine 25 MG TAB PO SCH (09:58)
[2018-11-22] MEDS: AMOXICILLIN/CLAVUL 875 MG TAB PO SCH ×2 (09:58→21:25)
[2018-11-22] MEDS: predniSONE 20 MG TAB PO SCH (09:58)
[2018-11-22] MEDS: PANTOPRAZOLE 40 MG TAB PO SCH (09:59)
[2018-11-22] MEDS: METOPROLOL TARTRATE 25 MG TAB PO SCH ×2 (09:59→21:26)
[2018-11-22] MEDS: POTASSIUM CHL 20 Meq TABLET PO SCH (09:59)
[2018-11-22] MEDS: ALLOPURINOL 100 MG TAB PO SCH (10:00)
[2018-11-22] MEDS: HYDROcodone-ACET 5/325MG TAB PO PRN ×2 (10:03→18:22)
--- NOTE | 2018-11-22 12:15 | NUR ---
ROUNDS PATIENT EATING LUNCH WITH .
[2018-11-22 13:00] VITALS: BP 119/68
[2018-11-22 17:14] VITALS: BP 160/94
--- NOTE | 2018-11-22 19:30 | NUR ---
OPENING SHIFT NOTE Patient in bed alert and oriented x 4, patient noted crying, stated she had a lot of things going on today. Reassured patient, will attend to needs and assistance and encouraged to press call light when needed. Patient was given pain medication from prior shift and per patient, pain level to left shoulder tolerable at this time. Plan of care discussed, patient verbalized understanding. All needs attended, will continue to monitor.
[2018-11-22] MEDS: ALPRAZolam 0.5 MG TAB PO PRN (19:46)
--- NOTE | 2018-11-22 19:47 | NUR ---
Xanax administered as ordered for anxiety.
[2018-11-22 21:50] VITALS: BP 135/59
[2018-11-23 05:34] VITALS: BP 142/87
[2018-11-23 09:00] VITALS: BP 150/68
[2018-11-23] MEDS: POTASSIUM CHL 20 Meq TABLET PO SCH (10:00)
[2018-11-23] MEDS: lamoTRIgine 25 MG TAB PO SCH (10:00)
[2018-11-23] MEDS: ALLOPURINOL 100 MG TAB PO SCH (10:17)
[2018-11-23] MEDS: predniSONE 20 MG TAB PO SCH (10:17)
[2018-11-23] MEDS: PANTOPRAZOLE 40 MG TAB PO SCH (10:17)
[2018-11-23] MEDS: AMOXICILLIN/CLAVUL 875 MG TAB PO SCH ×2 (10:18→21:25)
[2018-11-23] MEDS: METOPROLOL TARTRATE 25 MG TAB PO SCH ×2 (10:19→21:26)
[2018-11-23] MEDS: ALPRAZolam 0.5 MG TAB PO PRN ×2 (11:13→21:26)
[2018-11-23 13:00] VITALS: BP 132/62
[2018-11-23] MEDS: HYDROcodone-ACET 5/325MG TAB PO PRN ×2 (14:44→21:26)
--- NOTE | 2018-11-23 15:49 | NUR ---
Nutrition Follow-up Notes Wt.: 94.3 kg based on bed scale as of yesterday. Pt's asleep, no immediate family member at bedside during rounds this morning. Pt's no signs of distress noted earlier, currently on Cardiac: 2 gms Na, Low Chol, Low Fat, Low Purine diet with adequate PO intake aeb 80% ave. consumed meals (x6) in last 2.5 days. Est. Needs BW [id number] kcal (23-25 kcal/kgBW), 82-90 gms pro (1.0-1.1 gms/kgBW). Will continue to monitor pertinent labs and reassess nutrient need prn Labs: No new labs since 11/21/18 BUN 25 H, Cr 1.12 H; AST 12 L, ALT 7 L, Tpro 5.9 L, Alb 2.2 L Skin: Ruddy scale 17, mod risk, skin intact per print color operator. GI: Pt had 1 BM yesterday per print color operator. PES: Altered nutrition related lab values r/t acute/chronic medical condition aeb hypocalcemia, hyperuricemia, mod hypoalb Obesity r/t food intake more than body requirement aeb 143% IBW, BMI 30.7 kg/m2 and increased body adiposity Will continue to monitor PO intake, skin status, pertinent labs and weight trend. F/u in 3 to 5 days. Rec.: 1.) Consider Ensure Enlive 1 carton BID. 2.) Continue close supervision and feeding assistance during meals. 3.) If Albumin level continues trending down with improved renal labs, consider Prostat 1 pkt BID. 4.) Refer pt to RD for further nutrition education and weight monitoring upon discharge. 5.) Continue current plan of care.
[2018-11-23 17:56] VITALS: BP 134/61
--- NOTE | 2018-11-23 19:50 | NUR ---
Opening Shift Note Assumed care of patient, awake and alert and oriented x 4. No S/S of distress/SOB. Patient is a max assist, uses bedside commode, mohr is patent and draining. Bed in lowest locked position, side rails up x 2, call light within reach. Instructed on POC and to call for assist PRN, will continue to monitor for changes Q1hr and PRN.
[2018-11-23 20:00] VITALS: BP 145/74
[2018-11-23 22:00] VITALS: BP 145/74
[2018-11-24 05:00] VITALS: BP 120/62
--- NOTE | 2018-11-24 06:52 | NUR ---
Closing shift note Patient resting in bed asleep. No acute S/S of distress or SOB. Bed in lowest locked position, side rails up x 2, call light within reach. Will endorse care to dayshift RN.
[2018-11-24 09:00] VITALS: BP 137/67
[2018-11-24] MEDS: lamoTRIgine 25 MG TAB PO SCH (10:00)
[2018-11-24] MEDS: PHENAZOPYRIDINE HCL 100 MG TAB PO SCH ×2 (10:05→21:29)
[2018-11-24] MEDS: ALLOPURINOL 100 MG TAB PO SCH (10:05)
[2018-11-24] MEDS: PANTOPRAZOLE 40 MG TAB PO SCH (10:05)
[2018-11-24] MEDS: predniSONE 20 MG TAB PO SCH (10:05)
[2018-11-24] MEDS: METOPROLOL TARTRATE 25 MG TAB PO SCH ×2 (10:06→21:29)
[2018-11-24] MEDS: POTASSIUM CHL 20 Meq TABLET PO SCH (10:09)
[2018-11-24] MEDS: AMOXICILLIN/CLAVUL 875 MG TAB PO SCH ×2 (10:09→21:28)
[2018-11-24 14:33] VITALS: BP 135/73
[2018-11-24] MEDS ORDERED: HYDR-4683 PO (14:46)
[2018-11-24 17:21] VITALS: BP 153/80
[2018-11-24 20:00] VITALS: BP 135/74
--- NOTE | 2018-11-24 20:28 | NUR ---
SUMMARY NOTES PT HAD BEEN ALERT AND ORIENTED X 4 ALL DAY TODAY BUT HAD REFUSED TO BE TURNED STATING SHE TURNS HERSELF IN BED. PT ALSO STATED SHE GOT UP TODAY. PT HAD FAMILY AT BEDSIDE THIS AFTERNOON. SHE HAD REFUSED HER DINNER TRAY AND ONLY WANTED THE FRUIT. PT DOES COMPLAIN A LOT ABOUT EVERYTHING BUT ALSO REFUSED HELP WHEN STAFF OFFERS IT. STATING SHE SHOULDN'T HAVE TO ASK. EXPLAINED TO PATIENT THAT SHE NEEDS TO LET US KNOW IF SHE NEEDS SOMETHING OR IF SHE NEEDS HELP BUT SHE'S JUST NOT HAPPY ABOUT IT. PT DENIES PAIN UNLESS SHE'S MOVING. NO DISTRESS NOTED.
--- NOTE | 2018-11-24 21:06 | NUR ---
Opening Shift Note Assumed care of patient, awake, alert and oriented x 4. Patient on room air and on bedrest. Dumas is patent and draining. No S/S of distress/SOB. Patient reported pain level of 7. Bed in lowest locked position, side rails up x 2, call light within reach. Insructed on POC and to call for assist PRN, will continue to monitor for changes Q1hr and PRN.
[2018-11-24] MEDS: CYCLOBENZAPRINE HCL 10 MG TAB PO SCH (21:28)
[2018-11-24] MEDS: HYDROcodone-ACET 5/325MG TAB PO PRN (21:30)
[2018-11-24] MEDS: TEMAZEPAM 15 MG CAP PO PRN (21:30)
[2018-11-24 22:00] VITALS: BP 149/69
[2018-11-25 05:00] VITALS: BP 150/68
[2018-11-25] MEDS: CYCLOBENZAPRINE HCL 10 MG TAB PO SCH (05:58)
--- NOTE | 2018-11-25 06:41 | NUR ---
Closing shift note Patient resting in bed. No acute S/S of distress or SOB. Bed in lowest locked position, side rails up x 2, call light within reach. Will endorse care to dayshift RN.
--- NOTE | 2018-11-25 07:30 | NUR ---
Opening Shift Note Assumed care of patient, awake, alert, and oriented x4. No S/S of distress/SOB, but patient is reporting chronic generalized body . pain of 6/10. IV is in right wrist 22 gauge and is asymptomatic, and intact. Dumas catheter is patent and draining clear cynthia urine to gravity. Bed is locked and in lowest position and call light is within reach. Instructed on POC and to call for assist PRN, and patient verbalized understanding. Will continue to monitor for changes Q1hr and PRN.
[2018-11-25 09:12] VITALS: BP 154/87
[2018-11-25] MEDS: AMOXICILLIN/CLAVUL 875 MG TAB PO SCH (10:00)
[2018-11-25] MEDS: ALLOPURINOL 100 MG TAB PO SCH (10:00)
[2018-11-25] MEDS: lamoTRIgine 25 MG TAB PO SCH (10:00)
[2018-11-25] MEDS: PANTOPRAZOLE 40 MG TAB PO SCH (10:00)
[2018-11-25] MEDS: POTASSIUM CHL 20 Meq TABLET PO SCH (10:00)
[2018-11-25] MEDS: PHENAZOPYRIDINE HCL 100 MG TAB PO SCH (10:00)
[2018-11-25] MEDS: METOPROLOL TARTRATE 25 MG TAB PO SCH (10:01)
[2018-11-25] MEDS: predniSONE 20 MG TAB PO SCH (10:02)
[2018-11-25] MEDS ORDERED: MORPHINE SULF INJ 2 MG/ML SYRINGE 1ML IV PRN (11:45)
[2018-11-25] MEDS ORDERED: CYCLOBENZAPRINE HCL 10 MG TAB PO PRN (11:45)
[2018-11-25] MEDS ORDERED: PANT40T PO (11:46)
[2018-11-25] MEDS ORDERED: AMOX-277 PO (11:46)
--- NOTE | 2018-11-25 12:12 | NUR ---
Dr. Murphy, Hospitalist, at bedside, and answered all questions and concerns. New orders received.
[2018-11-25] MEDS: HYDROcodone-ACET 5/325MG TAB PO PRN ×2 (12:36→20:25)
[2018-11-25 13:00] VITALS: BP 140/80
[2018-11-25 16:58] VITALS: BP 136/58
[2018-11-25 17:23] VITALS: BP 140/80
--- NOTE | 2018-11-25 18:23 | NUR ---
Discharge instructions given as ordered. Encourage to follow up with PMD as instructed. All questions and concerns addressed. Patient verbalized understanding. Medication reconciliation form completed and copy given to patient. IV removed with catheter intact, pressure dressing applied.
--- NOTE | 2018-11-25 19:45 | NUR ---
OPEN NOTE Assumed care of patient, awake, alert and oriented x 4. Patient on room air and on bedrest. Dumas is patent and draining, DARK ORANGE OUTPUT. No S/S of distress/SOB. Patient reported pain level of 6 will administer PO pain mediation. Bed in lowest locked position, side rails up x 2, call light within reach. Instructed on POC and to call for assist PRN, will continue to monitor for changes Q1hr and PRN. Pending transport ride home.
--- NOTE | 2018-11-25 20:33 | NUR ---
Discharge instructions given as ordered. Encourage to follow up with PMD as instructed. All questions and concerns addressed. Patient verbalized understanding. Medication reconciliation form completed and copy given to patient. Dumas catheter remains inserted per orders. Left shoulder sling remains on patient. Intact patient and draining. Patient taken via gurney by transport team with all personal belongings. No distress noted at time of departure.
[2018-11-26] MEDS ORDERED: predniSONE 20 MG TAB PO SCH (10:00)
== END 2018-11-25 20:33 | disposition home health service (06) | DRG 542 ==
LOC: EDBD 17:58 → ER 18:01 → TELE-WESTW 18:02 → WEST WING 11-18 13:36
PROVIDERS: ADMIT Nurse Practitioner Family; ATTEND Internal Medicine
DX: M84.422A Pathological fracture, left humerus, initial encounter for fracture (principal); I21.4 Non-ST elevation (NSTEMI) myocardial infarction; E44.0 Moderate protein-calorie malnutrition; N39.0 Urinary tract infection, site not specified; E87.6 Hypokalemia; M10.9 Gout, unspecified; E66.01 Morbid (severe) obesity due to excess calories; M11.20 Other chondrocalcinosis, unspecified site; M17.10 Unilateral primary osteoarthritis, unspecified knee; M85.80 Other specified disorders of bone density and structure, unspecified site; Z96.651 Presence of right artificial knee joint; I25.10 Atherosclerotic heart disease of native coronary artery without angina pectoris; B96.20 Unspecified Escherichia coli [E. coli] as the cause of diseases classified elsewhere; W01.0XXA Fall on same level from slipping, tripping and stumbling without subsequent striking against object, initial encounter; B95.2 Enterococcus as the cause of diseases classified elsewhere; I11.9 Hypertensive heart disease without heart failure; G47.00 Insomnia, unspecified; F41.9 Anxiety disorder, unspecified; I25.2 Old myocardial infarction; Z79.899 Other long term (current) drug therapy; Z68.26 Body mass index [BMI] 26.0-26.9, adult; Y93.89 Activity, other specified; Y92.89 Other specified places as the place of occurrence of the external cause; Y99.8 Other external cause status; Z88.2 Allergy status to sulfonamides; Z91.048 Other nonmedicinal substance allergy status; Z95.5 Presence of coronary angioplasty implant and graft
CPT/HCPCS: 36415; 70450; 70486; 71045; 73030; 73560; 80048; 80053; 81001; 82962; 83735; 83880; 84132; 84484; 84550; 85025; 85610; 85730; 87086; 87088; 87186; 93005; 93017; 93306; 93351; 93352; 96365; 96366; G0378; J0461; J0696; J2001; J2405; J3480; Q9956